=== PATIENT | female | born 1935 | race Two or more races ===

== ENCOUNTER 2020-11-12 16:41 | Outpatient (CLI) | payer OTHER ==
[~2020-11-12 16:41] MED LIST: AMIODARONE HCL200 MG; ANORO ELLIPTA1 EACH; BREO ELLIPTA 21 EACH; CARVEDILOL12.5 MG; EFFEXOR XR75 MG; HYGROTON; LIPITOR20 MG; LISINOPRIL10 MG; NITROGLYCERIN0.4 MG; PRADAXA75 MG; PRILOSEC; SPIRIVA; SYNTHROID88 MCG; ULTRAM50 MG PO
== END 2020-11-12 16:45 | disposition home or self-care (01) ==
LOC: RAD 16:41
PROVIDERS: ATTEND Physical Medicine & Rehabilitation
DX: M25.512 Pain in left shoulder (principal); M25.562 Pain in left knee

== ENCOUNTER 2021-03-18 15:03 | Outpatient (CLI) | payer OTHER | END 2021-03-18 15:12 | disposition home or self-care (01) | LOC: TOM 15:03 | PROVIDERS: ATTEND Physical Medicine & Rehabilitation | DX: M25.562 Pain in left knee (principal); M79.641 Pain in right hand ==

== ENCOUNTER 2021-04-30 14:37 | Outpatient (CLI) | payer OTHER | END 2021-04-30 14:45 | disposition home or self-care (01) | LOC: TOM 14:37 | PROVIDERS: ATTEND Physical Medicine & Rehabilitation | DX: I67.81 Acute cerebrovascular insufficiency (principal) ==

== ENCOUNTER 2021-11-10 11:47 | Outpatient (CLI) | payer OTHER | END 2021-11-10 11:52 | disposition home or self-care (01) | LOC: RAD 11:47 | PROVIDERS: ATTEND Ophthalmology | DX: I10 Essential (primary) hypertension (principal) ==

== ENCOUNTER 2022-05-09 13:20 | Outpatient (CLI) | payer OTHER | END 2022-05-09 13:28 | disposition home or self-care (01) | LOC: RAD 13:20 | PROVIDERS: ATTEND Physical Medicine & Rehabilitation | DX: R07.81 Pleurodynia (principal); M54.6 Pain in thoracic spine ==

== ENCOUNTER 2022-11-17 14:11 | Outpatient (CLI) | payer OTHER | END 2022-11-17 14:16 | disposition home or self-care (01) | LOC: RAD 14:11 | PROVIDERS: ATTEND Physical Medicine & Rehabilitation | DX: M94.0 Chondrocostal junction syndrome [Tietze] (principal) ==